=== PATIENT | female | born 1970 | race Caucasian/White ===

== ENCOUNTER → 2024-01-06 09:04 | Outpatient (REF) | payer BC, SELFPAY | LOC: HWRAD 09:04 | PROVIDERS: ATTENDING PHYSICIAN Urology; FAMILY PHYSICIAN Internal Medicine | DX: M62.89 Other specified disorders of muscle (principal); N39.41 Urge incontinence; N39.3 Stress incontinence (female) (male); N31.9 Neuromuscular dysfunction of bladder, unspecified; N81.10 Cystocele, unspecified | CPT/HCPCS: 76770; 76830; 76856 ==

== ENCOUNTER → 2024-04-28 14:15 | Outpatient (REF) | payer BC, SELFPAY | LOC: HWRAD 14:15 | PROVIDERS: ATTENDING PHYSICIAN Urology; FAMILY PHYSICIAN Internal Medicine | DX: N20.0 Calculus of kidney (principal) | CPT/HCPCS: 74176 ==